=== PATIENT | female | born 1985 | race Caucasian/White ===

== ENCOUNTER 2024-11-13 03:51 | Inpatient (IN) ==
[2024-11-13] MEDS ORDERED: LIDOCAINE 1% LOCAL 20 ML VIAL INFIL PRN (04:43)
[2024-11-13] MEDS ORDERED: OXYTOCIN 30 UNITS/NSS 30 UNITS/500 ML BAG IV PRN ×2 (04:43→19:15)
[2024-11-13 05:47] LABS: Hematocrit (blood only) 35.9 % (37.0-47.0); Hemoglobin 12.4 g/dl (12.0-16.0); Mean Corpuscular Hemoglobin 31.2 pg (25.0-34.0); Mean Corpuscular Hgb Conc 34.5 g/dL (32.0-36.0); Mean Corpuscular Volume 90.4 fL (80.0-100.0); Platelet Count 179 K/uL (130-400); RDW Coefficient of Variation 13.3 % (11.5-14.5); RDW Standard Deviation 43.8 fL (36.4-46.3); Red Blood Count 3.97 M/uL (4.20-5.40); White Blood Count 14.01 K/ul (4.8-10.8)
[2024-11-13] MEDS: SODIUM CHLORIDE 0.9% 1,000 ML IV SCH (07:45)
--- NOTE | 2024-11-13 07:58 | Anesthesiology Consultation ---
Date of Service November 13, 2024 Assessment & Plan (1) Encounter for pre-operative examination: Chart Review Chart Review: Acceptable Risk for Labor Epidural History Height/Weight Height: 5 ft 9 in Weight: 80.286 kg Allergies Allergy/AdvReac Type Severity Reaction Status Date / Time bee venom protein (honey bee) Allergy Unknown Unknown Verified 11/13/24 05:15 venom-wasp Allergy Unknown Unknown Verified 11/13/24 05:15 latex Allergy Rash Verified 11/13/24 05:18 No Known Drug Allergies Allergy Unknown Verified 11/13/24 05:15 Medications Home Medications Medication Instructions Recorded Confirmed Last Taken vit-iron fum-folic ac 1 tab PO DAILY 03/31/24 11/13/24 11/12/24 [ Vitamin] Past Medical History Medical History History of chicken pox Past Family History Family History Grandmother (Paternal) Colorectal cancer Father Colorectal cancer Denies family history of Ovarian cancer Prostate cancer Myocardial infarction Breast cancer Past Surgical History Surgical History Status post colposcopy Hx of LASIK (2022) H/O oral surgery Social History Smoking Status: Never smoker Do You Dip or Chew Tobacco: No Hx Alcohol Use: Yes Hx Substance Use: No Physical Exam Vital Signs Last Vital Signs Temp 36.3 C L 11/13/24 07:32 Pulse 82 11/13/24 07:34 Resp 20 11/13/24 07:32 BP 115/71 11/13/24 07:34 Testing Laboratory Results 11/13/24 05:10
[2024-11-13] MEDS: BUPIVACAINE 0.25% PF 30 ML VIAL ONE (08:19)
[2024-11-13] MEDS: LIDOCAINE 2%/EPINEPHRINE 1:200,000 20 ML PF ONE (08:19)
[2024-11-13] MEDS: fentaNYL citrate PF 100 MCG/2 ML VIAL ONE (08:19)
[2024-11-13] MEDS: fentANYL 2 MCG/ML BUPIVacaine 0.125%-NSS 100ML BAG ONE (08:20)
[2024-11-13] MEDS ORDERED: fentaNYL citrate PF 100 MCG/2 ML VIAL EPI PRN (08:23)
[2024-11-13] MEDS ORDERED: SODIUM CHLORIDE 0.9% PF INJ 10 ML VIAL EPI PRN (08:23)
[2024-11-13] MEDS ORDERED: BUPIVACAINE 0.25% PF 30 ML VIAL EPI PRN (08:23)
[2024-11-13] MEDS ORDERED: NALOXONE HCL 0.4 MG/1 ML VIAL/CARP IV PRN (08:23)
[2024-11-13] MEDS ORDERED: NALOXONE HCL 1 MG in SODIUM CHLORIDE 0.9% 1,000 ML IV PRN (08:23)
[2024-11-13] MEDS ORDERED: LIDOCAINE 2% MPF LOCAL 5 ML VIAL EPI PRN (08:23)
[2024-11-13] MEDS ORDERED: ePHEDrine sulfate 50 MG/ML AMP IV PRN (08:23)
[2024-11-13] MEDS ORDERED: ROPIVACAINE 0.5% PF 5 MG/ML 20 ML VIAL EPI PRN (08:23)
--- NOTE | 2024-11-13 08:31 | History & Physical Report ---
Date of Service November 13, 2024 Assessment & Plan (1) Supervision of elderly primigravida: Plan: Marlyn is a 39-year-old G2, P0 currently at 39 weeks 0 days gestational age with spontaneous rupture of membranes in early labor. 1. Fetus: Category 1 tracing 2. Labor: Noted to be grossly ruptured on admission. Progressing spontaneously. 3. GBS negative 4. Vitals within normal limits. (2) SROM (spontaneous rupture of membranes): (3) Term : Admission and Anticipated Discharge Date Admission Date: November 13, 2024 History of Present Illness Primary Care Provider: Alessandra Guerrero PA-C Marlyn is a 39-year-old G2, P0 currently at 39 weeks 0 days gestational age presents with spontaneous rupture of membranes around 11 PM last night. Also noting regular painful contractions about every 4 to 5 minutes. Denies any vaginal bleeding and noting good movement. complicated by advanced maternal age Allergies Allergy/AdvReac Type Severity Reaction Status Date / Time bee venom protein (honey bee) Allergy Unknown Unknown Verified 11/13/24 05:15 venom-wasp Allergy Unknown Unknown Verified 11/13/24 05:15 latex Allergy Rash Verified 11/13/24 05:18 No Known Drug Allergies Allergy Unknown Verified 11/13/24 05:15 Home Medications Medication Instructions Recorded Confirmed Type vit-iron fum-folic ac 1 tab PO DAILY 03/31/24 11/13/24 History [ Vitamin] Patient History Medical History History of chicken pox Surgical History Status post colposcopy Hx of DAPHNEIK (2022) H/O oral surgery Family History Grandmother (Paternal) Colorectal cancer Father Colorectal cancer Denies family history of Ovarian cancer Prostate cancer Myocardial infarction Breast cancer Social History (Updated 03/31/24 @ 09:59 by María Corado) Smoking Status: Never smoker Second Hand Exposure: No; Do You Dip or Chew Tobacco: No; Hx Alcohol Use: Yes Hx Substance Use: No Preferred Language: Setswana Periodicals Clerk Required: No Beliefs That Will Affect Care: None marital status: marital status details: Filipe Copeland (35) [phone] Current Living Situation: Spouse Current Living Situation Comment: lives with spouse, cats- patient changes litter wearing mask and gloves current occupational status: employed 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; [employer] How many Children do You have: 0 Other Information That Helps Us Care for You: No Feels Safe at Home: Yes Safety Concerns: Feels Safe At This Time Childhood Exposure to Second-Hand Smoke: No Diet: regular caffeine: Yes Dental Care, Regularly: Yes Physical Activity Frequency: 5-6 Times per Week Seatbelt Use: always Sunscreen Use: Yes Assistive Devices: None Physical Exam Genitourinary: Manual OB Exam: + cervical dilation 3 cm, + cervical effacement 90%, + station -2 and + amniotic fluid clear OB Exam Monitor Tracing: + external FHT monitor used, + external uterine monitor used, + category I and + normal FHT variability Results & Data Vital Signs (Past 12 Hours) Vital Signs Temp Pulse Resp BP Pulse Ox 11/13/24 08:23 73 110/72 96 11/13/24 08:21 77 107/70 11/13/24 08:19 73 110/71 11/13/24 08:18 73 97 11/13/24 08:17 84 114/72 86 L 11/13/24 08:15 89 120/75 11/13/24 08:13 97 11/13/24 08:13 95 H 11/13/24 08:13 98 H 131/80 11/13/24 08:11 82 93 11/13/24 08:08 80 100 11/13/24 08:05 93 H 92 11/13/24 08:04 81 95 11/13/24 07:34 82 115/71 11/13/24 07:32 20 11/13/24 07:32 36.3 C L 20 11/13/24 06:26 18 11/13/24 06:26 36.4 C L 18 11/13/24 04:55 78 113/73 11/13/24 04:14 37.1 C 18 Coding Level of Care Code None Diagnoses Encounter for supervision of primigravida of advanced maternal age in third trimester O09.513 Trimester: third trimester SROM (spontaneous rupture of membranes) Term Z34.90 (1) Supervision of elderly primigravida Trimester: third trimester Qualified Code(s): O09.513 - Supervision of elderly primigravida, third trimester
[2024-11-13] MEDS: ePHEDrine sulfate 50 MG/ML AMP ONE (08:40)
[2024-11-13] MEDS: SODIUM CHLORIDE 0.9% PF INJ 10 ML VIAL ONE (08:40)
[2024-11-13] MEDS: OXYTOCIN 30 UNITS/NSS 30 UNITS/500 ML BAG IV PRN (10:03)
[2024-11-13] MEDS: fentaNYL citrate PF 100 MCG/2 ML VIAL EPI STA (13:01)
[2024-11-13] MEDS: SODIUM CHLORIDE 0.9% PF INJ 10 ML VIAL EPI STA (13:01)
[2024-11-13] MEDS: BUPIVACAINE 0.25% PF 30 ML VIAL EPI STA (13:01)
[2024-11-13] MEDS: LIDOCAINE 2%/EPINEPHRINE 1:200,000 20 ML PF EPI STA (13:01)
[2024-11-13] MEDS: ONDANSETRON INJ 2 MG/ML 2 ML VIAL IV PRN (15:15)
[2024-11-13] MEDS: fentANYL 2 MCG/ML BUPIVacaine 0.125%-NSS 100ML BAG EPI PRN (16:40)
[2024-11-13] MEDS: ACETAMINOPHEN 325 MG TAB ONE (19:07)
[2024-11-13] MEDS ORDERED: bisacodyL 10 MG SUPP PR PRN (19:15)
[2024-11-13] MEDS ORDERED: oxyCODONE/ACETAMINOPHEN 5mg/325mg TAB PO PRN (19:15)
[2024-11-13] MEDS ORDERED: HYDROCORTISONE ACETATE 25 MG SUPP PR PRN (19:15)
[2024-11-13] MEDS ORDERED: ACETAMINOPHEN 325 MG TAB PO PRN (19:15)
[2024-11-13] MEDS ORDERED: KETOROLAC TROMETHAMINE 15 MG/ML VIAL IV PRN (19:15)
--- NOTE | 2024-11-13 19:26 | Delivery Summary ---
Vaginal Delivery Summary Date of Service November 13, 2024 Vaginal Delivery Summary and 1st Degree LAC (vaginal) Patient is a 39-year-old 1 P0 female EDC of 11/20/2024 who presented in active labor and spontaneous rupture of membranes for clear fluid. She received effective epidural analgesia and Pitocin augmentation of her labor per labor and delivery protocol. She progressed to full dilation and pushed effectively over intact perineum for delivery of a viable male infant. After the 's head was delivered the rest the infant followed without maternal effort and he was placed on mother's abdomen for further attention and drying. After stimulation he was crying and moving all 4 limbs. After 1 minute, the cord was clamped and cut. After cord blood was obtained, the placenta was expressed intact with a three-vessel cord. bleeding was controlled with dilute Pitocin and fundal massage. A first-degree vaginal laceration was repaired with 3-0 chromic in the usual fashion. Mother and infant were doing well after delivery. QBL is 330 mL. [facility] Vaginal Delivery Charge Delivery Type Details: and 1st Degree LAC (vaginal)
--- NOTE | 2024-11-13 19:59 | Anesthesia Procedure Note ---
Date of Service November 13, 2024 Anesthesia Post Epidural Note Vital Signs Vital Signs: Temp Pulse Resp BP Pulse Ox 37.4 C 109 H 18 126/71 100 11/13/24 18:30 11/13/24 19:55 11/13/24 19:26 11/13/24 19:55 11/13/24 18:49 Notes Mental Status: alert / awake / arousable and participated in evaluation Nausea / Vomiting: adequately controlled Pain: adequately controlled Airway Patency, RR, SpO2: stable & adequate BP & HR: stable & adequate Hydration State: stable & adequate Neuraxial Anesthesia: was administered and sensory block is resolving Anesthetic Complications: no major complications apparent and Pt Satisfied with anesthetic care Epidural: Removed without complications and With tip intact
[2024-11-13] MEDS: DOCUSATE SODIUM 100 MG CAP PO SCH (21:56)
[2024-11-13] MEDS: BENZOCAINE 20% SPRY 85 APPLN/85 GM CAN EXT PRN (21:56)
[2024-11-14 07:23] LABS: Hematocrit (blood only) 29.9 % (37.0-47.0); Hemoglobin 10.4 g/dl (12.0-16.0); Mean Corpuscular Hemoglobin 31.7 pg (25.0-34.0); Mean Corpuscular Hgb Conc 34.8 g/dL (32.0-36.0); Mean Corpuscular Volume 91.2 fL (80.0-100.0); Mean Platelet Volume 10.9 fL (9.4-12.4); Platelet Count 145 K/uL (130-400); RDW Coefficient of Variation 13.4 % (11.5-14.5); RDW Standard Deviation 43.9 fL (36.4-46.3); Red Blood Count 3.28 M/uL (4.20-5.40); White Blood Count 26.85 K/ul (4.8-10.8)
--- NOTE | 2024-11-14 07:25 | Obstetrical Progress Note ---
Date of Service November 14, 2024 Assessment & Plan (1) Encounter for care and examination after delivery: satisfactory course continue current care plan Subjective Ambulation: ambulating normally Voiding: no voiding problems Passing Gas:: Yes Diet Tolerance:: regular diet Lochia:: Moderate Feeding Type:: breast feeding doing well- only complaint is cramping with nursing at this time Review of Systems All systems reviewed & are unremarkable except as noted in HPI & below Physical Exam Constitutional WD/WN, vitals as above Psychiatric A+Ox3, euthymic affect Genitourinary OB Exam Abdomen: + fundal height Fundus: + firm and + relation to umbilicus (at U) Results & Data Vital Signs (Past 12 Hours) Vital Signs Temp Pulse Pulse Resp BP BP Pulse Ox 11/14/24 03:45 97.9 F 77 18 113/73 95 11/13/24 23:30 98.2 F 90 18 108/69 96 11/13/24 21:39 98.4 F 78 18 116/74 11/13/24 21:12 97 H 109/74 11/13/24 21:10 98.4 F 18 11/13/24 21:10 93 H 122/73 11/13/24 20:55 100 H 118/66 11/13/24 20:40 97.9 F 18 11/13/24 20:40 18 11/13/24 20:40 100 H 113/66 11/13/24 20:25 18 11/13/24 20:25 113 H 111/64 11/13/24 20:10 18 11/13/24 20:10 99 H 118/66 11/13/24 19:55 18 11/13/24 19:55 109 H 126/71 11/13/24 19:40 113 H 143/79 H 11/13/24 19:34 106 H 129/77 11/13/24 19:26 18 11/13/24 19:25 18 11/13/24 19:25 116 H 133/81 O2 Del Method 11/14/24 03:45 Room Air 11/13/24 23:30 Room Air 11/13/24 21:39 11/13/24 21:12 11/13/24 21:10 11/13/24 21:10 11/13/24 20:55 11/13/24 20:40 11/13/24 20:40 11/13/24 20:40 11/13/24 20:25 11/13/24 20:25 11/13/24 20:10 11/13/24 20:10 11/13/24 19:55 11/13/24 19:55 11/13/24 19:40 11/13/24 19:34 11/13/24 19:26 11/13/24 19:25 11/13/24 19:25
[2024-11-14] MEDS: IBUPROFEN 600 MG TAB PO PRN (08:29)
[2024-11-14] MEDS: PRENATAL VITAMIN 1 TAB PO SCH (08:29)
[2024-11-14] MEDS: DIPHTHER/TETAN/PERTUS Vaccine (Tdap, Adol/Adult) 0.5mL IM ONE (14:38)
[2024-11-14] MEDS: bisacodyL 5 MG TABEC PO SCH (20:11)
[2024-11-15 06:50] LABS: Hematocrit (blood only) 30.6 % (37.0-47.0); Hemoglobin 10.2 g/dl (12.0-16.0)
--- NOTE | 2024-11-15 07:27 | Obstetrical Progress Note ---
Date of Service November 15, 2024 Assessment & Plan (1) Encounter for care and examination after delivery: satisfactory course discharge to home follow up in 6 weeks Subjective Ambulation: ambulating normally Voiding: no voiding problems Passing Gas:: Yes Diet Tolerance:: regular diet Feeding Type:: breast feeding tired this morning. baby cluster feeding all night. Review of Systems All systems reviewed & are unremarkable except as noted in HPI & below Physical Exam Constitutional WD/WN, vitals as above Psychiatric A+Ox3, euthymic affect Genitourinary OB Exam Abdomen: + fundal height Fundus: + firm and + relation to umbilicus (at U) no calf tenderness Results & Data Vital Signs (Past 12 Hours) Vital Signs Temp Pulse Resp BP Pulse Ox O2 Del Method 11/14/24 23:40 97.9 F 72 18 110/69 97 Room Air 11/14/24 20:14 97.9 F 79 16 113/72 97 Room Air
[2024-11-15 07:55] VITALS: BP 112/73; RESP 16; TEMP 97.3; O2SAT 96
[2024-11-15 09:45] VITALS: PULSE 79
== END 2024-11-15 15:12 | disposition home or self-care (01) | DRG 807 ==
LOC: OPB 03:51 → 4S1 03:53 → 4E2 21:46